=== PATIENT | male | born 1985 | race Hispanic/Latino ===

== ENCOUNTER 2024-11-25 23:27 | Emergency (ER) | payer BC ==
[~2024-11-25] VITALS: Ht 175.3 cm; Wt 98.4 kg
--- NOTE | 2024-11-26 00:15 | NUR ---
PATIENT VERBALIZED TAKING APPROXIMATELY 8-12 ACETAMINOPHEN 500MG TABLETS AFTER HAVING RECIEVED AND TAKEN 1000MG OF TYLENOL HERE. PATIENT REPORTS HE WAS INSTRUCTED AT PRIOR FACILITY AND WAS UNAWARE OF DOSAGE RECCOMENDATIONS; PATIENT DENIES SI OR HI. PAGE MADE TO POISON CONTROL AND ED PROVIDER MADE AWARE.
--- NOTE | 2024-11-26 00:20 | NUR ---
PER POISON CONTROL REP, PATIENT DID NOT CONSUME LETHAL DOSE OF TYLENOL AND CAN BE TREATED SYMTPOM BASED. LIVER FUNCTION PANEL ORDER RECCOMENDATIONS GIVEN AND IF ELEVATED CAN BE TREATED WITH MUCOMYST. FURTHER RECOMENDATIONS GIVEN TO ABSTAIN FROM TYLENOL 24-28 HOURS.
[2024-11-26] MEDS: CYCLOBENZAPRINE HCL 10 MG TABLET PO ONE (00:24)
[2024-11-26] MEDS: acetaMINOPHEN 500 MG TABLET PO ONE (00:25)
[2024-11-26] MEDS: Solu-medROL 125MG VIAL IVP ONE (00:25)
[2024-11-26 00:30] LABS: APPEARANCE,URINE CLEAR (CLEAR); BILIRUBIN,URINE NEGATIVE (NEGATIVE); COLOR,URINE YELLOW (YELLOW); GLUCOSE, URINE (UA) NEGATIVE (NEGATIVE); KETONES,URINE NEGATIVE (NEGATIVE); LEUKOCYTE ESTERASE ,URINE NEGATIVE Leu/uL (NEGATIVE); NITRATE,URINE NEGATIVE (NEGATIVE); PROTEIN,URINE 30 mg/dL (NEGATIVE); UROBILINOGEN,URINE 6 mg/dL (0.2-1.0)
[2024-11-26 00:31] VITALS: PULSE 76; RESP 18
[2024-11-26 00:31] LABS: ADD UA MICROSCOPIC YES
[2024-11-26] MEDS: IpraTROPium/alBUTERol SULFATE 3 ML SOLUTION IH ONE (00:31)
[2024-11-26 00:32] LABS: BACTERIA,URINE FEW /HPF (None Seen); MUCUS,URINE MANY LPF (None Seen); SQUAMOUS EPITHELIAL CELL,UR RARE /HPF (0-2)
[2024-11-26 00:35] LABS: BASOPHILS # (AUTO) 0.07 K/uL (0.00-0.20); BASOPHILS % (AUTO) 0.5 % (0.0-5.0); EOSINOPHILS # (AUTO) 0.22 K/uL (0.00-0.70); EOSINOPHILS % (AUTO) 1.6 % (0.0-8.0); HEMATOCRIT 44.1 % (42-54); IMMATURE GRANULOCYTE ABSOLUTE 0.09 K/uL (0-1); LYMPHOCYTES # (AUTO) 2.8 K/uL (1.0-4.8); LYMPHOCYTES % (AUTO) 20.7 % (21.0-51.0); MEAN CORPUSCULAR HEMOGLOBIN 32.3 pg (27.0-33.0); MEAN CORPUSCULAR HGB CONC 35.1 g/dL (32.0-36.0); MEAN CORPUSCULAR VOLUME 91.9 fL (79-99); MONOCYTES # (AUTO) 1.1 K/uL (0.1-1.0); MONOCYTES % (AUTO) 7.8 % (3.0-13.0); NEUTROPHILS # (AUTO) 9.3 K/uL (1.8-7.7); NEUTROPHILS % (AUTO) 68.7 % (40.0-77.0); PLATELET COUNT (AUTO) 334 K/uL (130-400); RED CELL DISTRIBUTION WIDTH 13.9 % (11.0-15.5); WHITE BLOOD COUNT (AUTO) 13.5 K/uL (4.8-10.8)
--- NOTE | 2024-11-26 00:37 | ERN ---
ED Note History of Present Illness Stated Complaint: C/O TIGHTNESS TO CHEST WITH SOB, UPPER BACK PAIN Chief Complaint: Shortness of Breath Time Seen by MD: 23:30 Time Seen by Midlevel: 20:30 Dictation: Patient is a 28-year-old male with a history of hypertension, hyperlipidemia who presents to the emergency department with complaints of left side back pain and left-sided chest pain associated with productive cough, shortness of breath and chills onset five days ago. Patient reports he started with a cough five days ago but yesterday he coughed and he fell the pain on his back that radiates to the front. Patient reports he was seen at [facility] where they did multiple exams including a CT scan and was told it was musculoskeletal pain. Patient reports pain is worse with movement. Allergies: Coded Allergies: egg (Unverified Allergy, Intermediate, 06/02/24) ibuprofen (Unverified Allergy, Intermediate, 06/02/24) Past Medical History Past Medical History: High Cholesterol, Hypertension Additional Past Medical Hx: PTSD Surgical History: None RN Note Reviewed/Agreed w/PFSH: Yes Review of System Dictation Constitutional: Negative for fever,and weight loss positive for chills Eyes: Negative for injury, pain,redness, and discharge ENT: Negative for injury,pain or swelling Cardiovascular: Negative for chest pain, palpitations, and edema Respiratory: Negative for wheezing, positive for shortness of breath, cough Abdomen/GI: Negative for abdominal pain, nausea, vomiting, diarrhea, and constipation Back: Negative for injury and pain : Negative for injury, bleeding and discharge MS/Extremity: Negative for injury and deformity Skin: Negative for rash, and discoloration Neuro: Negative for headache, weakness, numbness, tingling, and seizure Psych: Negative for suicide ideation, homicidal ideation, and hallucinations Initial Vital Sign VS Vital Signs Date Time Temp Pulse Resp B/P (MAP) Pulse Ox O2 Delivery O2 Flow Rate FiO2 11/25/24 23:29 100.0 82 20 145/106 97 Room Air 11/25/24 23:55 0 21 Physical Exam Dictation Vital Signs reviewed General Appearance: Alert, oriented x 3, no acute distress, well developed, nourished. Head and Face: non-traumatic. Eyes: PERRL, pink conjunctivas, eyelid no trauma, anterior chamber with arcus senilis. Ears: Pinnas intact and no signs of trauma or erythema ear canals clear and no discharge TM no erythema Nose: No discharge, no bleeding. Oropharynx: Mouth normal, tongue pink. pharynx clear,no erythema, tonsils no exudates, no abscesses noted, mucous membrane moist Neck: Supple, non-tender, no thyromegaly, no masses, no JVD, no bruits Breast:Deferred Chest:No tenderness, no crepitus, no paradoxical movement, no retractions Lungs:Clear, well-ventilated, symmetric, no rales, mild wheezing, no rhonchi, no stridor, good breath sounds bilaterally Heart: Regular rate, regular rhythm, no murmur, no gallops Vascular: no peripheral edema, Abdomen: Soft, positive bowel sounds, nondistended, no guarding, nontender, no rebound, no masses no hepatomegaly, no splenomegaly, no Powers's sign, no hernias. Rectal: Deferred Genital: Deferred Neurological: Normal speech, motor function intact, sensory function intact Musculoskeletal: Neck nontender, full range of motion, left upper back tenderness, full range of motion, Extremities: nontender, full range of motion Skin: Color pink, dry, no turgor, no rash, no lacerations, no abrasions, no contusions. Lymphatic: Deferred Results (Laboratory/Radiology) Laboratory/Radiology Laboratory Tests Test 11/26/24 00:05 11/26/24 00:21 11/26/24 00:26 11/26/24 05:54 White Blood Count 13.5 K/uL (4.8-10.8) H Red Blood Count 4.80 MIL/uL (4.50-6.20) Hemoglobin 15.5 g/dL (14.0-18.0) Hematocrit 44.1 % (42-54) Mean Corpuscular Volume 91.9 fL (79-99) Mean Corpuscular Hemoglobin 32.3 pg (27.0-33.0) Mean Corpuscular Hemoglobin Concent 35.1 g/dL (32.0-36.0) Red Cell Distribution Width 13.9 % (11.0-15.5) Platelet Count 334 K/uL (130-400) Mean Platelet Volume 10.2 fL (7.5-10.5) Immature Granulocyte % (Auto) 0.7 % (0-1) Neutrophils (%) (Auto) 68.7 % (40.0-77.0) Lymphocytes (%) (Auto) 20.7 % (21.0-51.0) L Monocytes (%) (Auto) 7.8 % (3.0-13.0) Eosinophils (%) (Auto) 1.6 % (0.0-8.0) Basophils (%) (Auto) 0.5 % (0.0-5.0) Neutrophils # (Auto) 9.3 K/uL (1.8-7.7) H Lymphocytes # (Auto) 2.8 K/uL (1.0-4.8) Monocytes # (Auto) 1.1 K/uL (0.1-1.0) H Eosinophils # (Auto) 0.22 K/uL (0.00-0.70) Basophils # (Auto) 0.07 K/uL (0.00-0.20) Absolute Immature Granulocyte (auto 0.09 K/uL (0-1) Nucleated Red Blood Cells 0.0 % (0.0-0.19) Troponin I High Sensitivity 4 ng/L (4-75) B-Type Natriuretic Peptide < 5 pg/mL (0-100) Urine Color YELLOW (YELLOW) Urine Appearance CLEAR (CLEAR) Urine pH 6.0 (5.0-8.0) Urine Specific [place] 1.042 (1.001-1.031) Urine Protein 30 mg/dL (NEGATIVE) H Urine Glucose (UA) NEGATIVE mg/dL (NEGATIVE) Urine Ketones NEGATIVE mg/dL (NEGATIVE) Urine Occult Blood +- (TRACE) (NEGATIVE) H Urine Nitrate NEGATIVE (NEGATIVE) Urine Bilirubin NEGATIVE mg/dL (NEGATIVE) Urine Urobilinogen 6 mg/dL (0.2-1.0) H Urine Leukocyte Esterase NEGATIVE Rhonda/uL Urine RBC 2-5 /HPF (0-1) H Urine WBC 2-5 /HPF (0-1) H Urine Squamous Epithelial Cells RARE /HPF (0-2) Urine Bacteria FEW /HPF (None Seen) Sodium Level 143 mmol/L (136-145) Potassium Level 3.5 mmol/L (3.5-5.1) Chloride Level 107 mmol/L (101-111) Carbon Dioxide Level 25 mmol/L (21-32) Blood Urea Nitrogen 16 mg/dL (7-18) Creatinine 0.8 mg/dL (0.5-1.3) Glomerular Filtration Rate Calc 116 mL/min (>90) Random Glucose 156 mg/dL (70-105) H Total Calcium 8.5 mg/dL (8.5-10.1) Magnesium Level 2.00 mg/dL (1.80-2.40) Total Bilirubin 0.4 mg/dL (0.2-1.0) 0.5 mg/dL (0.2-1.0) # Direct Bilirubin 0.1 mg/dL (0.0-0.3) 0.1 mg/dL (0.0-0.3) Aspartate Amino Transf (AST/SGOT) 21 U/L (10-37) 22 U/L (10-37) Alanine Aminotransferase (ALT/SGPT) 49 U/L (12-78) 48 U/L (12-78) Alkaline Phosphatase 90 U/L (50-136) 84 U/L (50-136) Total Creatine Kinase 156 U/L (21-232) # Total Protein 6.9 g/dL (6.0-8.3) 7.1 g/dL (6.0-8.3) Albumin 3.8 g/dL (3.5-5.0) 3.8 g/dL (3.5-5.0) Salicylates Level < 2.8 mg/dL (2.8-20.0) L Urine Opiates Screen NEGATIVE (NEGATIVE) Acetaminophen Level 33 mcg/mL (10-29) *H 3 mcg/mL (10-29) #L Urine Barbiturates Screen NEGATIVE (NEGATIVE) Urine Phencyclidine Screen NEGATIVE (NEGATIVE) Urine Amphetamines Screen NEGATIVE (NEGATIVE) Urine Benzodiazepines Screen NEGATIVE (NEGATIVE) Urine Cocaine Screen NEGATIVE (NEGATIVE) Urine Marijuana (THC) Screen POSITIVE (NEGATIVE) H Influenza Type A Antigen Negative For Type A Influenza Type B Antigen Negative For Type B SARS-CoV-2 Antigen (Rapid) PRESUMPTIVE NEGATIVE Labs Reviewed?: Yes EKG: (+) rhythm (Rhythm) EKG Comment: Date:11/25/2024 Time:2343 Ventricular rate:76 KS interval:138 QRS duration:96 QT/QTc:387 EKG interpretation: Sinus rhythm Reviewed by ED Attending no STEMI ED Course ED Course Orders Procedure Category Date Status Time 12 Lead Ekg Tracing- EKG 11/25/24 Complete Technical 23:49 Cbc With Differential LAB 11/25/24 Complete 23:50 B-Type Natriuretic LAB 11/25/24 Complete Peptide 23:50 Chest 1vw RAD 11/25/24 Taken 23:50 12 Lead Ekg Tracing- EKG 11/25/24 Logged Technical 23:50 Acetaminophen 500mg PHA 11/26/24 Complete Tab (Tylenol 500mg T 00:00 Magnesium LAB 11/25/24 Complete 23:50 Creatine Kinase, Total LAB 11/25/24 Complete 23:50 Troponin I High LAB 11/25/24 Complete Sensitivity 23:50 Urinalysis Profile LAB 11/25/24 Complete 23:50 Basic Metabolic Panel LAB 11/25/24 Complete 23:50 Covid19 (Sars Antigen LAB 11/25/24 Complete Rapid) 23:50 Influenza Type A & B, LAB 11/25/24 Complete Rapid 23:50 Drug Screen Urine LAB 11/25/24 Complete 23:50 Cyclobenzaprine Hcl PHA 11/26/24 Complete (Cyclobenzaprine Hcl 00:00 Methylprednisolone PHA 11/26/24 Complete Succ 125mg (Solu-Medr 00:00 Ipratropium/Albuterol PHA 11/26/24 Complete Neb (Duoneb) 00:00 Hepatic Function Panel LAB 11/26/24 Complete 00:23 Acetaminophen LAB 11/26/24 Complete 00:23 Salicylate LAB 11/26/24 Complete 00:23 Ceftriaxone 1g Vial PHA 11/26/24 Complete (Rocephine 1g Inj) 01:30 Acetaminophen LAB 11/26/24 Complete 06:00 Hepatic Function Panel LAB 11/26/24 Complete 06:00 Current Medications Medications (Trade) Dose Ordered Sig/Hiren Route PRN Reason Start Time Stop Time Status Last Admin Dose Admin Acetaminophen (TYLenol 500MG TAB) 1,000 mg ONCE ONCE PO 11/26/24 00:00 11/26/24 00:01 DC 11/26/24 00:25 Albuterol (DUOneb) 1 UDVIAL ONCE ONCE IH 11/26/24 00:00 11/26/24 00:01 DC 11/26/24 00:31 Ceftriaxone Sodium (ROCEphine 1G INJ) 1 gm ONCE ONCE IVPB 11/26/24 01:30 11/26/24 01:32 DC 11/26/24 03:13 Cyclobenzaprine HCl (Cyclobenzaprine HCl) 10 mg ONCE ONCE PO 11/26/24 00:00 11/26/24 00:01 DC 11/26/24 00:24 Methylprednisolone Sodium Succinate (Solu-medROL 125MG) 120 mg ONCE ONCE IVP 11/26/24 00:00 11/26/24 00:01 DC 11/26/24 00:25 Vital Signs Date Time Temp Pulse Resp B/P (MAP) Pulse Ox O2 Delivery O2 Flow Rate FiO2 11/26/24 06:26 99.0 84 20 132/86 99 Room Air* 0 11/26/24 04:40 86 16 136/74 98 Room Air* 0 11/26/24 02:15 88 19 152/80 97 Room Air* 0 11/26/24 00:31 76 18 11/26/24 00:25 100.0 11/25/24 23:55 100.0 86 18 147/98 98 Room Air* 0 11/25/24 23:29 100.0 82 20 145/106 97 Room Air HEART Score Response (Comments) Value History: Low suspicion (0) 0 EKG: Normal 0 Age: < 45yrs (0) 0 Risk Factors: No known risk factors (0) 0 Initial Troponin: Normal limit (0) 0 Total 0 Medical Decision Making MDM Patient is a 28-year-old male with a history of hypertension, hyperlipidemia who presents to the emergency department with complaints of left side back pain and left-sided chest pain associated with productive cough, shortness of breath and chills onset five days ago. Patient reports he started with a cough five days ago but yesterday he coughed and he fell the pain on his back that radiates to the front. Patient reports he was seen at [facility] where they did multiple exams including a CT scan and was told it was musculoskeletal pain. Patient reports pain is worse with movement. After administration of Tylenol patient told nurse that he had taken about 15 tablets of 500 mg of Tylenol today. Patient denies any suicidal or homicidal ideations. Reports he was told at [facility] to take Tylenol for the pain but patient was unaware of dosing. Poison control was called and they recommended liver enzymes, Tylenol level and for patient not to take anymore Tylenol for the next 24-48 hours. Poison control was informed of Tylenol levels and they would like patient to stay until 6:00 a.m. for recheck liver enzymes. CBC showed mild leukocytosis, no anemia, chemistry showed no electrolyte imbalance, normal renal function, negative troponin, negative CK, negative liver enzymes, toxicology positive for THC, Tylenol level of 33, urinalysis negative for leukocyte esterase, negative nitrites, serology negative. On x-ray patient has some infiltrates to the left lung. We will be treated with the antibiotics. Differential diagnosis: Upper respiratory infection, pneumonia, back spasm, Need for hospitalization: Patient does not meet criteria for hospitalization. There are no social concerns with this patient. This in control was contacted about Tylenol toxicity. They recommended follow- up labs in the morning for Tylenol and LFTs and if those labs were normal the pa gustavo could be safely discharged from the hospital DX & DISP Disposition: Discharge Departure Impression: Primary Impression: Tylenol toxicity Additional Impression: Pain on movement of skeletal muscle Condition: Stable Additional Instructions: In the future please restrict your Tylenol intake to less than 4 g a day. Unless your drinking alcohol in which case it should be less than 2 g a day. Referrals: SELF,REFERRAL (PCP) KHOA GAYLE Nov 26, 2024 00:37 CAROL VILLA MD Nov 26, 2024 06:51
[2024-11-26 00:42] LABS: CREATININE 0.8 mg/dL (0.5-1.3); POTASSIUM 3.5 mmol/L (3.5-5.1)
[2024-11-26 00:55] LABS: ALANINE AMINOTRANSFERASE 49 U/L (12-78); ALBUMIN 3.8 g/dL (3.5-5.0); ASPARTATE AMINOTRANSFERASE 21 U/L (10-37); BILIRUBIN,DIRECT 0.1 mg/dL (0.0-0.3); BILIRUBIN,TOTAL 0.4 mg/dL (0.2-1.0); SALICYLATE < 2.8 mg/dL (2.8-20.0); TOTAL PROTEIN, SERUM 6.9 g/dL (6.0-8.3)
[2024-11-26 00:57] LABS: ACETAMINOPHEN 33 mcg/mL (10-29)
[2024-11-26 01:00] LABS: B-TYPE NATRIURETIC PEPTIDE < 5 pg/mL (0-100)
[2024-11-26 01:02] LABS: AMPHET/METH SCREEN,URINE NEGATIVE (NEGATIVE); BARBITURATE SCREEN, URINE NEGATIVE (NEGATIVE); BENZODIAZEPINES SCREEN,URINE NEGATIVE (NEGATIVE); CANNABINOID SCREEN,URINE POSITIVE (NEGATIVE); COCAINE SCREEN,URINE NEGATIVE (NEGATIVE); OPIATE SCREEN,URINE NEGATIVE (NEGATIVE); PHENCYCLIDINE SCREEN,URINE NEGATIVE (NEGATIVE)
[2024-11-26 01:09] LABS: COVID19 (SARS ANTIGEN RAPID) PRESUMPTIVE NEGATIVE (NEGATIVE); INFLUENZA TYPE A Negative For Type A (NEGATIVE); INFLUENZA TYPE B Negative For Type B (NEGATIVE)
--- NOTE | 2024-11-26 01:45 | NUR ---
POISON CONTROL UPDATE; REFERENCE NUMBER #[id number] PATIENT REP NOTIFIED OF CRITICAL ACETAMINOPHEN LEVEL OF 33. PER REP RECCOMENDATION IS TO OBSERVE UNTIL 0600 AND REPEAT ACETAMINOPHEN LEVEL AND LFT.
[2024-11-26] MEDS: cefTRIAXone 1G VIAL IVPB ONE (03:13)
[2024-11-26 06:26] VITALS: BP 132/86; PULSE 84; RESP 20; TEMP 98.9; O2SAT 99
--- NOTE | 2024-11-26 06:35 | EKG ---
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
[2024-11-26 06:38] LABS: ALBUMIN 3.8 g/dL (3.5-5.0); BILIRUBIN,DIRECT 0.1 mg/dL (0.0-0.3); BILIRUBIN,TOTAL 0.5 mg/dL (0.2-1.0); TOTAL PROTEIN, SERUM 7.1 g/dL (6.0-8.3)
[2024-11-26 06:49] VITALS: TEMP 98.9
[2024-11-26] MEDS ORDERED: KETO10 PO (06:52)
[2024-11-26] MEDS: ORPHENADRINE 60MG/2ML ONE (07:04)
[2024-11-26] MEDS: ORPHENADRINE 60MG/2ML IM ONE (07:04)
--- NOTE | 2024-11-26 08:23 | HMCIMG ---
Exam Type: CHEST 1VW Clinical Information: cough, cp Comparison: None Findings: The lungs are clear of infiltrates. The heart is normal in size. The bony and soft tissue structures of the chest are unremarkable. Impression: Clear lungs.
== END 2024-11-26 07:16 | disposition home or self-care (01) ==
LOC: EDH 23:27
DX: M79.18 Myalgia, other site (principal); T39.1X5A Adverse effect of 4-Aminophenol derivatives, initial encounter; E78.00 Pure hypercholesterolemia, unspecified; I10 Essential (primary) hypertension; Z88.6 Allergy status to analgesic agent; Z20.822 Contact with and (suspected) exposure to COVID-19; Y92.89 Other specified places as the place of occurrence of the external cause
CPT/HCPCS: 99284; 71045; 87426; 82550; 83735; 84484; 80048; 83880; 80305; 85025; 87804 ×2; 81001; 36415; 93005; 96365; 96366; 96375; 96372; 80076 ×2; G0481; J2919; J0696; J2360

== ENCOUNTER 2025-06-10 10:27 | Emergency (ER) | payer BC ==
[~2025-06-10] VITALS: Ht 175.3 cm; Wt 102.1 kg
[~2025-06-10 10:27] MED LIST: KETO10 PO
--- NOTE | 2025-06-10 10:48 | ERN ---
ED Note History of Present Illness Stated Complaint: WHEEZING Chief Complaint: Shortness of Breath Time Seen by MD: 10:33 Time Seen by Midlevel: 10:36 Dictation: 39-YEAR-OLD MALE COMING IN COMPLAINING OF FLU-LIKE SYMPTOMS FOR THE LAST THREE DAYS. PATIENT IS COMPLAINING OF COUGH AND RUNNY NOSE WITH A PHLEGM. STATES WHEN HE WAS COUGHING THIS MORNING HE HEARD SOMETHING "POP" ON THE LEFT LOWER CHEST AREA. PATIENT STATES HE FEELS IT PHLEGM STUCK TO THE BACK OF HIS THROAT AND STATES HE HAS DIFFICULTY CLEARING. DENIES ANY FEVER, NAUSEA OR VOMITING CHEST PAIN. Allergies: Coded Allergies: egg (Unverified Allergy, Intermediate, 06/02/24) ibuprofen (Unverified Allergy, Intermediate, 06/02/24) Home Meds Active Scripts Ketorolac Tromethamine (Toradol) 10 Mg Tab, 1 TAB PO Q6HPRN PRN for pain for 5 Days, #20 TAB 0 Refills Prov:CAROL VILLA MD 11/26/24 Past Medical History Past Medical History: High Cholesterol, Hypertension Additional Past Medical Hx: PTSD Surgical History: None Review of System Dictation CONSTITUTIONAL: NEGATIVE FOR FEVER,CHILLS, AND WEIGHT LOSS EYES: NEGATIVE FOR INJURY, PAIN,REDNESS, AND DISCHARGE ENT: COUGH, CONGESTION, THROAT PAIN CARDIOVASCULAR: NEGATIVE FOR CHEST PAIN, PALPITATIONS, AND EDEMA RESPIRATORY: NEGATIVE FOR SHORTNESS OF BREATH, COUGH, AND WHEEZING, ABDOMEN/GI: NEGATIVE FOR ABDOMINAL PAIN, NAUSEA, VOMITING, DIARRHEA, AND CONSTIPATION BACK: NEGATIVE FOR INJURY AND PAIN : NEGATIVE FOR INJURY, BLEEDING AND DISCHARGE MS/EXTREMITY: NEGATIVE FOR INJURY AND DEFORMITY SKIN: NEGATIVE FOR RASH, AND DISCOLORATION NEURO: NEGATIVE FOR HEADACHE, WEAKNESS, NUMBNESS, TINGLING, AND SEIZURE PSYCH: NEGATIVE FOR SUICIDE IDEATION, HOMICIDAL IDEATION, AND HALLUCINATIONS Review of Systems: was completed Initial Vital Sign VS Vital Signs Date Time Temp Pulse Resp B/P (MAP) Pulse Ox O2 Delivery O2 Flow Rate FiO2 06/10/25 10:28 98.1 90 18 165/95 98 Room Air 06/10/25 10:39 0 21 Physical Exam Dictation GENERAL: AWAKE, ALERT, NAD HEAD/FACE: NORMOCEPHALIC, ATRAUMATIC EYES: PERRL, EOMI, VISION AT BASELINE ENT: ORAL CAVITY CLEAR, TMS CLEAR, NO SIGNS OF INFECTION, ERYTHEMA NOTED TO THE PHARYNX AREA, NO EXUDATE, NO TONSILLAR EFFACEMENT NECK: TRACHEA MIDLINE, SUPPLE, NO NUCHAL RIGIDITY CARDIOVASCULAR: RRR, NORMAL S1/S2, NO MRGS, NO JVD RESPIRATORY: CTAB, NO RESPIRATORY DISTRESS, NO RALES OR WHEEZES ABDOMEN: SOFT, NON-TENDER, NON-DISTENDED, NORMAL BOWEL SOUNDS, NO GUARDING OR REBOUND. SKIN: WARM, DRY, NORMAL TURGOR, NO RASH MS/EXTREMITY: PULSES EQUAL, NO CYANOSIS, NEUROVASCULAR INTACT, FROM NEURO: COAX4, GCS 15, STRENGTH 5/5, CN 2-12 INTACT, NORMAL CEREBELLAR EXAM, NORMAL GAIT, PSYCH: NORMAL BEHAVIOR, MOOD, AND AFFECT NORMAL Results (Laboratory/Radiology) Laboratory/Radiology Laboratory Tests Test 06/10/25 10:55 Influenza Type A Antigen Negative For Type A Influenza Type B Antigen Negative For Type B SARS-CoV-2, RNA, NAAT NEGATIVE SARS CoV-2 Group A Streptococcus Rapid positive (NEGATIVE) *A ED Course ED Course Orders Procedure Category Date Status Time Covid Rna Naat LAB 06/10/25 Complete 10:44 Influenza Type A & B, LAB 06/10/25 Complete Rapid 10:44 Rapid (Group A Strep) LAB 06/10/25 Complete 10:44 Chest 1vw RAD 06/10/25 Taken 10:44 Methylprednisolone PHA 06/10/25 Complete Succ 125mg (Solu-Medr 11:00 Guaifenesin/Dextromethorphan PHA 06/10/25 Complete (Mucinex Dm 11:00 Ipratropium/Albuterol PHA 06/10/25 Complete Neb (Duoneb) 11:00 Current Medications Medications (Trade) Dose Ordered Sig/Hiren Route PRN Reason Start Time Stop Time Status Last Admin Dose Admin Albuterol (DUOneb) 1 UDVIAL ONCE ONCE IH 06/10/25 11:00 06/10/25 11:01 DC 06/10/25 11:07 Guaifenesin/ Dextromethorphan (MUCinex DM 1 EACH TAB.SR.12H) 1 each ONCE ONCE PO 06/10/25 11:00 06/10/25 11:01 DC 06/10/25 11:10 Methylprednisolone Sodium Succinate (Solu-medROL 125MG) 125 mg ONCE ONCE IVP 06/10/25 11:00 06/10/25 11:01 DC 06/10/25 11:10 Vital Signs Date Time Temp Pulse Resp B/P (MAP) Pulse Ox O2 Delivery O2 Flow Rate FiO2 06/10/25 11:07 87 18 06/10/25 10:39 99.0 96 17 170/107 100 Room Air* 0 21 06/10/25 10:28 98.1 90 18 165/95 98 Room Air Medical Decision Making MDM MDM:39-YEAR-OLD MALE COMING IN COMPLAINING OF FLU-LIKE SYMPTOMS FOR THE LAST THREE DAYS. PATIENT IS COMPLAINING OF COUGH AND RUNNY NOSE WITH A PHLEGM. STATES WHEN HE WAS COUGHING THIS MORNING HE HEARD SOMETHING "POP" ON THE LEFT LOWER CHEST AREA. PATIENT STATES HE FEELS IT PHLEGM STUCK TO THE BACK OF HIS THROAT AND STATES HE HAS DIFFICULTY CLEARING. DENIES ANY FEVER, NAUSEA OR VOMITING CHEST PAIN. SWABS POSITIVE FOR STREP. CHEST X-RAY SHOWS NO ACUTE FINDINGS. INTERPRETED BY ME. PATIENT WILL BE DISCHARGED ON ANTIBIOTICS FOR THE STREP AND FOLLOW UP OUTPATIENT WITH THE PCP. DISCUSSED WITH THE PATIENT ON RED FLAG SYMPTOMS OF WHEN TO RETURN BACK TO THE EMERGENCY ROOM. PATIENT VERBALIZED UNDERSTANDING, ANSWERED ALL QUESTIONS. DIFFERENTIAL DIAGNOSIS: VIRAL SYNDROME, COVID, STREP, INFLUENZA RATIONALE: TESTS CONSIDERED AND ORDERED SECONDARY TO SHARED DECISION MAKING INCLUDE: PREVIOUS OUTSIDE RECORDS REVIEWED: OLD ER VISITS. RISK OF COMPLICATION AND/OR MORBIDITY OR MORTALITY OF PATIENT MANAGEMENT: NONE MEDICATIONS-PER MEDICATION RECONCILIATION NEED FOR HOSPITALIZATION: PATIENT DOES NOT MEET CRITERIA FOR HOSPITALIZATION. NEED FOR EMERGENCY MAJOR/MINOR SURGERY: NO THERE ARE NO SOCIAL CONCERNS WITH THIS PATIENT. PRESCRIPTION DRUG MANAGEMENT PRESCRIPTIONS WILL INCLUDE SYMPTOMATIC CARE PATIENT'S PRIOR EXTERNAL MEDICAL RECORDS FROM OTHER ER VISITS WERE REVIEWED BY ME INDICATED. PRIOR TESTING AND RESULTS FROM PREVIOUS VISITS WERE REVIEWED. PRIOR TESTS WERE TAKEN INTO ACCOUNT WITH MEDICAL DECISION MAKING AND RESOURCE UTILIZATION, INDEPENDENT HISTORIAN/HISTORIANS WERE USED TO OBTAIN COMPLETE MEDICAL HISTORY. I INDEPENDENTLY INTERPRETED THE TEST THAT WERE PERFORMED, RESULTS WERE REVIEWED BY ME AND CONSIDERED FINDINGS ON RADIOLOGY IF ORDERED. MEDICAL MANAGEMENT AND EXAMINATION INTERPRETATION DISCUSSIONS WERE HAD BY ME WITH OTHER QUALIFIED HEALTHCARE PROFESSIONALS INDICATED FOR THE PATIENT'S CARE. DX & DISP Disposition: Discharge Departure Impression: Primary Impression: Strep pharyngitis Condition: Stable Scripts Amoxicillin/Potassium Clav (Amox Tr-K Clv 875-125 mg Tab) 875 Mg-125 Mg Tablet 1 EACH PO BID for 5 Days, #10 TAB 0 Refills Prov: NANCY WILD AIRCRAFT RIVETER 06/10/25 Additional Instructions: TAKE ANTIBIOTIC PRESCRIBED. RETURN TO THE HOSPITAL NEEDED. FOLLOW UP WITH YOUR PRIMARY CARE DOCTOR. Referrals: SELF,REFERRAL (PCP) Time of Disposition: 11:53 I have reviewed the case, and I agree with, Diagnosis and Plan NANCY WILD CNP Jun 10, 2025 10:48
[2025-06-10 11:07] VITALS: PULSE 87; RESP 18
[2025-06-10 11:29] LABS: RAPID GROUP A STREP positive (NEGATIVE)
[2025-06-10 11:34] LABS: SARS-CoV-2, RNA, NAAT NEGATIVE SARS CoV-2 (NEGATIVE)
[2025-06-10 11:35] LABS: INFLUENZA TYPE A Negative For Type A (NEGATIVE); INFLUENZA TYPE B Negative For Type B (NEGATIVE)
[2025-06-10] MEDS ORDERED: AMOX1TAB16 PO (11:53)
--- NOTE | 2025-06-10 11:59 | HMCIMG ---
EXAM: CR Chest, 1 view on 2 radiographs.. CLINICAL HISTORY: COUGH COMPARISON: None provided. FINDINGS: LUNGS: There is no mass, infiltrate, or acute pulmonary abnormality. PLEURAL SPACES: No evidence of pleural effusion or pneumothorax. MEDIASTINUM: The cardiomediastinal silhouette is within normal limits. BONES: No aggressive appearing osseous lesion seen. IMPRESSION: No acute cardiopulmonary pathology is evident. /[place]
[2025-06-10 12:50] VITALS: BP 159/90; PULSE 90; RESP 20; TEMP 98.3; O2SAT 97
--- NOTE | 2025-06-10 12:59 | NUR ---
DC PATIENT WAS DC'D BY NANCY WILD NP, I DC'D PATIENTS IV WITH CATH STILL INTACT AND APPLIED 2X2 GAUZE WITH COBAN I EXPLAINED TO PATIENT TO FOLLOW UP WITH PCP, PROVIDED INFO BASED ON DIAGNOSIS, PRESCRIPTIONS AND ANSWERED ANY FOLLOW UP QUESTIONS PATIENT AMBULATED OUT OF ED, NO COMPLICATIONS
== END 2025-06-10 12:58 | disposition home or self-care (01) ==
LOC: EDH 10:27
DX: J02.0 Streptococcal pharyngitis (principal); Z20.822 Contact with and (suspected) exposure to COVID-19; E78.00 Pure hypercholesterolemia, unspecified; I10 Essential (primary) hypertension; Z88.6 Allergy status to analgesic agent; Z91.0120 Allergy to eggs, unspecified
CPT/HCPCS: 99284; 96374; 71045; 87635; 87880; 87804 ×2; 94640; J2919